=== PATIENT | male | born 1975 | race Caucasian/White ===

== ENCOUNTER → 2018-08-12 | Outpatient (CLI) | payer BC | END | disposition home or self-care (01) | LOC: LAB 11:29 | PROVIDERS: ATTEND Internal Medicine | DX: J20.9 Acute bronchitis, unspecified (principal); E78.5 Hyperlipidemia, unspecified; E55.9 Vitamin D deficiency, unspecified | CPT/HCPCS: 71046; 80053; 80061; 82306; 84436; 84443; 85025 ==